=== PATIENT | male | born 1970 | race Two or more races ===

== ENCOUNTER → 2025-02-08 | Outpatient (CLI) | payer BC, OTHER, SELFPAY ==
[2025-02-08 08:03] LABS: Misc Send Out* See Sep Rpt
[2025-02-08 08:14] LABS: OBS Performed By LAB; OBS QC OK? Yes
[2025-02-08 08:37] LABS: Basophils % (Auto) 1 % (0-2.5); Eosinophils # (Auto) 0.1 Thou/mm3 (0.0-0.5); Eosinophils % (Auto) 2 % (0-10); Hematocrit 45.2 % (41.0-53.0); Hemoglobin 15.2 g/dL (13.5-16.0); Immature Granulocytes % (Auto) 0 % (0-0); Immature Granulocytes Auto 0.01 Thou/mm3 (0.00-0.00); Lymphocytes # (Auto) 1.6 Thou/mm3 (1.0-4.8); Lymphocytes % (Auto) 28 % (10-50); Mean Corpuscular HGB Conc 33.6 g/dl (31.0-37.0); Mean Corpuscular Hemoglobin 28.3 pg (25.0-35.0); Mean Corpuscular Volume 84 fL (80-100); Monocytes # (Auto) 0.5 Thou/mm3 (0.0-0.8); Monocytes % (Auto) 8 % (0-12); Neutrophils # (Auto) 3.4 Thou/mm3 (1.8-7.7); Neutrophils % (Auto) 61 % (37-80); Nucleated Red Blood Cell % 0 /100 WBC (0); Platelet Count 189 Thou/mm3 (140-440); RDW Standard Deviation 39.7 fL (35.1-43.9); Red Blood Count 5.38 Miln/mm3 (4.50-5.90); White Blood Count 5.6 Thou/mm3 (3.8-10.6)
[2025-02-08 08:43] LABS: Alanine Aminotransferase 56 U/L (10-49); Albumin, Serum 4.4 gm/dL (3.5-5.0); Albumin/Globulin Ratio 1.7 (1.2-2.2); Alkaline Phosphatase 82 U/L (46-116); Anion Gap 6 (7-16); Aspartate Amino Transferase 37 U/L (0-34); BUN/Creatinine Ratio 9 Ratio (12-20); Bilirubin,Total 0.5 mg/dL (0.3-1.2); Blood Urea Nitrogen 9 mg/dL (9-23); Carbon Dioxide 26.8 mMol/L (20.0-31.0); Cardiac Risk Estimate 3.4 RATIO (4.0-6.7); Chloride 108 mMol/L (98-107); Cholesterol 153 mg/dL (132-200); Free T4 (Free Thyroxine) 1.47 ng/dL (0.89-1.76); Globulin 2.6 gm/dL (2.3-3.5); Glucose 117 mg/dL (74-106); HDL Cholesterol 45 mg/dL (40-60); LDL Cholesterol,Calculated 93 mg/dL (0-130); Osmolality,Calculated 280 (275-295); Sodium 141 mMol/L (136-145); Thyroid Stimulating Hormone 0.94 uIU/mL (0.55-4.78); Triglycerides 74 mg/dL (30-150); eGFR > 60 See Note
[2025-02-08 09:04] LABS: Folate > 24.00 ng/mL (>5.38); INR 1.1 (0.9-1.3); Partial Thromboplastin Time 29.5 Seconds (22.0-36.0); Prothrombin Time 11.6 Seconds (9.0-12.2); Vitamin B12 617 pg/mL (211-911)
[2025-02-08 10:05] LABS: Amphetamine/Methamp Scrn,U Negative (Negative); Barbiturate Screen,Urine Negative (Negative); Benzodiazepines Screen,Urine Negative (Negative); Benzoylecgonine Screen, Ur Negative (Negative); Fentanyl Screen,Urine Negative (Negative); Opiate Screen,Urine Negative (Negative); THC Screen,Urine Negative (Negative)
[2025-02-08 10:06] LABS: OBS Developer Lot # 551749
[2025-02-08 10:07] LABS: Occult Blood, Stool Negative (Negative)
[2025-02-08 10:54] LABS: Stool for WBCs Negative (Negative)
== END | disposition home or self-care (01) ==
LOC: COPL 07:35
PROVIDERS: PCP Family Medicine
DX: Z00.00 Encounter for general adult medical examination without abnormal findings (principal); Z77.018 Contact with and (suspected) exposure to other hazardous metals; Z13.9 Encounter for screening, unspecified; K06.8 Other specified disorders of gingiva and edentulous alveolar ridge; R19.7 Diarrhea, unspecified
CPT/HCPCS: 36415; 80053; 80061; 80177; 80307; 82270; 82607; 82746; 84153; 84154; 84439; 84443; 85025; 85610; 85730; 87015; 87045; 87046; 87205; 87493; 87899

== ENCOUNTER → 2025-02-09 | Outpatient (CLI) | payer BC, OTHER, SELFPAY ==
[2025-02-09 07:38] LABS: Misc Send Out* See Sep Rpt
== END | disposition home or self-care (01) ==
PROVIDERS: Referring Provider Family Medicine; Visit Provider Family Medicine
DX: Z77.018 Contact with and (suspected) exposure to other hazardous metals (principal)
CPT/HCPCS: 82175; 83655; 83825

== ENCOUNTER → 2025-02-13 | Outpatient (CLI) | payer BC, OTHER, SELFPAY ==
[2025-02-13 11:30] LABS: Clostridium Difficile PCR Negative (Negative)
== END | disposition home or self-care (01) ==
LOC: SLDO 08:41
DX: R19.7 Diarrhea, unspecified (principal)
CPT/HCPCS: 87493

== ENCOUNTER → 2025-04-04 | Outpatient (CLI) | payer BC, OTHER, SELFPAY ==
[2025-04-04 08:54] LABS: Glucose Estimated Average 111 mg/dL (80-131); Hemoglobin A1C 5.5 % Hgb (4.8-6.0)
[2025-04-04 09:14] LABS: Glucose,Fasting 117 mg/dL (74-106)
[2025-04-04 09:26] LABS: Syphilis Nonreactive (Nonreactive)
[2025-04-04 09:37] LABS: Hepatitis C Antibody Non Reactive (Non React)
[2025-04-04 10:00] LABS: HIV (1&2) Antibody Rapid Non-Reactive
[2025-04-04 10:52] LABS: Chlamydia trachomatis PCR Negative (Not Detect); Neisseria Gonorrhoeae DNA PCR Negative (Not Detect); Trichomonas Negative (Negative)
== END | disposition home or self-care (01) ==
LOC: COPL 07:12
PROVIDERS: PCP Family Medicine; Referring Provider Nurse Practitioner; Visit Provider Nurse Practitioner
DX: R20.2 Paresthesia of skin (principal); Z11.3 Encounter for screening for infections with a predominantly sexual mode of transmission
CPT/HCPCS: 36415; 82947; 83036; 86703; 86780; 86803; 87491; 87591; 87661

== ENCOUNTER → 2025-07-19 | Outpatient (CLI) | payer BC, SELFPAY ==
--- NOTE | 2025-07-19 09:45 | XR_ITS ---
Examination: Abdomen sonogram, complete Date and time of exam: July 19, 2025 0943 hours INDICATIONS: Sharp upper abdominal pain beginning 2 years ago, cholecystectomy 3 years ago. Technique: Multiple real-time grayscale transabdominal sonographic images of the abdomen have been obtained. Findings: Absent gallbladder Normal common bile duct 0.3 cm Pancreatic head 3.1 cm Aorta not enlarged. Liver 13.8 cm fatty infiltration no focal liver lesions Normal hepatopedal portal venous flow Patent IVC. Right kidney 12.2 cm cortex 2.2 cm Left kidney 12.9 cm cortex 2.2 cm No hydronephrosis or renal calculi Spleen 12.3 cm IMPRESSION: Absent gallbladder Normal common bile duct Liver normal size fatty infiltration no focal liver lesions
== END | disposition home or self-care (01) ==
PROVIDERS: PCP Family Medicine; Referring Provider Family Medicine; Visit Provider Family Medicine
DX: K76.0 Fatty (change of) liver, not elsewhere classified (principal); Z90.49 Acquired absence of other specified parts of digestive tract
CPT/HCPCS: 76700

== ENCOUNTER → 2025-07-24 | Outpatient (CLI) | payer BC, SELFPAY ==
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
== END | disposition home or self-care (01) ==
PROVIDERS: PCP Family Medicine; Referring Provider Nurse Practitioner Family; Visit Provider Nurse Practitioner Family
DX: S39.92XA Unspecified injury of lower back, initial encounter (principal); V89.0XXA Person injured in unspecified motor-vehicle accident, nontraffic, initial encounter; M25.512 Pain in left shoulder; M25.511 Pain in right shoulder
CPT/HCPCS: 72110; 73030